=== PATIENT | female | born 1995 | race Caucasian/White ===

== ENCOUNTER 2016-11-27 16:41 | Emergency (ER) | payer OTHER ==
[~2016-11-27] VITALS: Ht 152.4 cm; Wt 62.0 kg
[~2016-11-27 16:41] MED LIST: CIPR500T4 PO; METR500T PO; NAPR-260 PO
[2016-11-27 16:56] VITALS: Ht 152.4 cm; Wt 62.0 kg
--- NOTE | 2016-11-27 18:28 | ERD ---
ER Documentation Chief Complaint Date/Time DATE: 11/27/16 TIME: 18:27 Chief Complaint pt bib self with c/o left ankle pain starting today after twisting it HPI 21-year-old female complains of left lateral pain after twisting it this afternoon while crossing the street. Patient reports diffuse achy pain, worse with weightbearing better at rest. The pain starts in her ankle goes to her foot. She denies any knee pain at this time. ROS All systems reviewed and are negative except as per history of present illness. Medications Home Meds Active Scripts Ibuprofen* (Motrin*) 600 Mg Tab, 600 MG PO Q6, #30 TAB Prov:MORELIA SHORE PA-C 11/27/16 Metronidazole* (Flagyl*) 500 Mg Tablet, 500 MG PO TID for 7 Days, TAB Prov:VAL,SOLITARIO 11/01/14 Ciprofloxacin Hcl* (Ciprofloxacin Hcl*) 500 Mg Tablet, 500 MG PO BID for 7 Days , TAB Prov:VAL,SOLITARIO 11/01/14 Naproxen* (Naprosyn*) 500 Mg Tablet, 500 MG PO BID, #20 TAB Prov:VAL,SOLITARIO 11/01/14 Allergies Allergies: Coded Allergies: sulfamethoxazole (Verified Allergy, Unknown, 11/01/14) trimethoprim (Verified Allergy, Unknown, 11/01/14) PMhx/Soc History of Surgery: No Anesthesia Reaction: No Hx Neurological Disorder: No Hx Respiratory Disorders: Yes (ASTHMA) Hx Cardiac Disorders: No Hx Psychiatric Problems: No Hx Miscellaneous Medical Probl: No Hx Alcohol Use: No Hx Substance Use: No Hx Tobacco Use: No Physical Exam Vitals Vital Signs Date Time Temp Pulse Resp B/P Pulse Ox O2 Delivery O2 Flow Rate FiO2 11/27/16 16:56 99.1 115 16 131/78 98 Physical Exam General: Well-developed, well-nourished. The patient appears in no acute distress. HEENT: Head is normocephalic, atraumatic. No scleral icterus. Neck: Supple. Nontender. Lungs: Clear to auscultation. Normal air movement. Heart: Regular rate and rhythm. S1 and S2 are normal. No murmurs, gallops, or rubs. Abdomen: Nondistended. Extremities: medial lateral soft tissue swelling of the left ankle, no bony deformities. She is able to flex and extend her ankle. Pulses 2+ bilaterally. Neurologic: Alert and oriented 3. No focal deficits. Normal speech and gait. Skin: Normal turgor. No rash or lesions. Results 24 hrs Current Medications Medications (Trade) Dose Ordered Sig/Shannon Route PRN Reason Start Time Stop Time Status Last Admin Dose Admin Ibuprofen (Motrin) 600 mg ONCE ONCE PO 11/27/16 18:30 11/27/16 18:31 DC 11/27/16 19:03 Acetaminophen/ Hydrocodone Bitart ([place] (5/325)) 1 tab ONCE ONCE PO 11/27/16 18:30 11/27/16 18:31 DC 11/27/16 19:03 DIAGNOSTIC IMAGING REPORT Patient: EVERETTE CARBALLO : 1995 Age: 21 Sex: F MR #: [id number] DOS: 11/27/161822 Ordering MD: MORELIA SHORE PA-C Location: [facility] Room/Bed: PROCEDURE: XR Left Foot CLINICAL INDICATION: Injury TECHNIQUE: AP, oblique, and lateral radiographs were submitted. COMPARISON: None FINDINGS: Osseous structures: appear well mineralized and intact with no fracture or destructive process identified. Joint spaces: are well maintained, with no significant spurring, erosion or joint effusion evident. Soft tissues: appear unremarkable. IMPRESSION: Unremarkable left foot. Physician Richard Date Time Electronically viewed and signed by Physician Richard on 11/27/2016 19:33 RH/ CC: MORELIA SHORE PA-C DIAGNOSTIC IMAGING REPORT Patient: EVERETTE CARBALLO : 1995 Age: 21 Sex: F MR #: [id number] DOS: 11/27/161822 Ordering MD: MORELIA SHORE PA-C Location: [facility] Room/Bed: PROCEDURE: XR Left Ankle CLINICAL INDICATION: Injury TECHNIQUE: Standard 3 view radiographs were submitted. COMPARISON: None FINDINGS: Osseous structures: Well mineralized and intact with no fracture or destructive process identified. Joint spaces: Well maintained with no significant erosions or spurring evident. Soft tissues: Appear unremarkable. IMPRESSION: Unremarkable left ankle. Physician Richard Date Time Electronically viewed and signed by Melissa Shi Physician on 11/27/2016 19:33 RH/ CC: MORELIA SHORE PA-C Procedures/MDM Course: Patient was given ibuprofen and [place] for pain. X-rays of the left foot and ankle are obtained. Acute fracture. Left ankle and foot were wrapped in Zackery bandage. She was given crutches, Splint Assessment: Neurovascularly intact post splint placement with good fit. Medical decision makin-year-old female presents with a twisting injury to her left foot and ankle, most consistent with a left foot sprain, left ankle sprain. There is no evidence of acute fracture, dislocation, tendon rupture, she is neurovascularly intact Departure Diagnosis: Primary Impression: Ankle sprain Additional Impression: Injury of foot Condition: Good MORELIA SHORE PA-C Nov 27, 2016 18:28
[2016-11-27] MEDS ORDERED: HYDROCODONE/APAP (5/325) TAB PO ONE (18:30)
[2016-11-27] MEDS ORDERED: IBUPROFEN 600 MG TAB PO ONE (18:30)
--- NOTE | 2016-11-27 19:33 | RADRPT ---
PROCEDURE: XR Left Foot CLINICAL INDICATION: Injury TECHNIQUE: AP, oblique, and lateral radiographs were submitted. COMPARISON: None FINDINGS: Osseous structures: appear well mineralized and intact with no fracture or destructive process iden tified. Joint spaces: are well maintained, with no significant spurring, erosion or joint effusion evident. Soft tissues: appear unremarkable. IMPRESSION: Unremarkable left foot. Physician Richard Date Time Electronically viewed and signed by Physician Richard on 11/27/2016 19:33 /
--- NOTE | 2016-11-27 19:34 | RADRPT ---
PROCEDURE: XR Left Ankle CLINICAL INDICATION: Injury TECHNIQUE: Standard 3 view radiographs were submitted. COMPARISON: None FINDINGS: Osseous structures: Well mineralized and intact with no fracture or destructive process identified. Joint spaces: Well maintained with no significant erosions or spurring evident. Soft tissues: Appear unremarkable. IMPRESSION: Unremarkable left ankle. Physician Richard Date Time Electronically viewed and signed by Melissa Shi Physician on 11/27/2016 19:33 /
[2016-11-27] MEDS ORDERED: IBUP-1542 PO (19:36)
== END 2016-11-27 20:04 | disposition home or self-care (01) ==
LOC: FTE 16:41
DX: S93.401A Sprain of unspecified ligament of right ankle, initial encounter (principal); J45.909 Unspecified asthma, uncomplicated; X50.9XXA Other and unspecified overexertion or strenuous movements or postures, initial encounter; Y92.9 Unspecified place or not applicable
CPT/HCPCS: 73610; 73630; Z7502; Z7610